=== PATIENT | female | born 1965 | race Caucasian/White ===

== ENCOUNTER → 2017-06-07 | Outpatient (CLI) | payer OTHER ==
[~2017-06-07] MED LIST: METHADONE HCL 110 M1 PO; PERCOCET 5-3251 EACH PO
== END ==
LOC: ULTRA 08:20
DX: K80.20 Calculus of gallbladder without cholecystitis without obstruction (principal); R16.0 Hepatomegaly, not elsewhere classified

== ENCOUNTER → 2020-06-12 | Outpatient (CLI) | payer OTHER | LOC: MRI 06-11 13:53 | PROVIDERS: ATTEND Family Medicine | DX: M51.26 Other intervertebral disc displacement, lumbar region (principal); M48.061 Spinal stenosis, lumbar region without neurogenic claudication; M47.816 Spondylosis without myelopathy or radiculopathy, lumbar region ==

== ENCOUNTER → 2020-06-20 | Outpatient (CLI) | payer OTHER ==
[~2020-06-20] VITALS: Ht 160 cm; Wt 65.9 kg
[~2020-06-20] MED LIST changes: +NORVASC 2.5 MG2.5 M1 PO; +ROBAXIN 750 MG750 MG PO; +TOPROL XL50 MG PO
[2020-06-20 07:33] VITALS: BP 157/99
[2020-06-20 09:32] VITALS: BP 149/91
== END | disposition home or self-care (01) ==
LOC: CATH 06:54
PROVIDERS: ATTEND Nuclear Medicine Nuclear Cardiology
DX: M54.9 Dorsalgia, unspecified (principal); M80.08XA Age-related osteoporosis with current pathological fracture, vertebra(e), initial encounter for fracture; I10 Essential (primary) hypertension; Z98.890 Other specified postprocedural states; Z79.899 Other long term (current) drug therapy; Z87.891 Personal history of nicotine dependence

== ENCOUNTER 2021-09-17 18:59 | Emergency (ER) | payer OTHER ==
[~2021-09-17] VITALS: Ht 160 cm; Wt 65.8 kg
[2021-09-17 19:00] VITALS: BP 109/60
[2021-09-17] MEDS ORDERED: ZESTORETIC 20-1 EAC3 PO (19:30)
[2021-09-17 19:33] LABS: URINE BILIRUBIN NEGATIVE (Negative); URINE BLOOD 2+ (Negative); URINE CLARITY CLEAR; URINE COLOR YELLOW; URINE GLUCOSE-RANDOM* NEGATIVE (Negative); URINE KETONES NEGATIVE (Negative); URINE PROTEIN (DIPSTICK) NEGATIVE (Negative); URINE SPECIFIC GRAVITY <= 1.005 (1.005-1.035); URINE UROBILINOGEN 0.2 E.U./dl (0.2-1.0)
[2021-09-17 19:39] LABS: URINE LEUKOCYTES-REFLEX 3+ (Negative); URINE NITRITE-REFLEX POSITIVE (Negative)
[2021-09-17 19:41] LABS: CASTS None Seen /LPF (None Seen); SQUAMOUS 4-10 Moderate /LPF (0-3)
[2021-09-17 19:44] LABS: BACTERIA-REFLEX >30 Many /HPF (None Seen); CRYSTALS None Seen /LPF (None Seen); URINE RBC 1-2 Rare /HPF (NONE SEEN)
[2021-09-17] MEDS ORDERED: MACROBID 100 M100 M1 PO (20:37)
[2021-09-17] MEDS ORDERED: NAPROSYN500 MG PO (20:37)
[2021-09-17] MEDS ORDERED: FLEXERIL PO (20:37)
== END 2021-09-17 20:48 | disposition home or self-care (01) ==
LOC: ER 18:59
PROVIDERS: Nurse Practitioner
DX: N39.0 Urinary tract infection, site not specified (principal); M54.50 Low back pain, unspecified; I10 Essential (primary) hypertension; Z79.899 Other long term (current) drug therapy; Z79.891 Long term (current) use of opiate analgesic; Z88.0 Allergy status to penicillin

== ENCOUNTER → 2021-10-06 | Outpatient (CLI) | payer OTHER ==
[~2021-10-06] VITALS: Ht 160 cm; Wt 60.2 kg
[~2021-10-06] MED LIST changes: +FLEXERIL PO; +MACROBID 100 M100 M1 PO; +NAPROSYN500 MG PO; +ZESTORETIC 20-1 EAC3 PO
[2021-10-06 11:00] VITALS: BP 106/77
--- NOTE | 2021-10-06 11:30 | NUR ---
Pain Clinic Assessment: 1. History of Osteoarthritis: Not Applicable History of Rheumatoid Arthritis: Not Applicable 2. Height: 5 ft. 3 in. 160.0 cm. Weight: 132.8 lb. oz. 60.238 kg. Patient's BMI: 23.5 3. Vital Signs: BP: 106/77 Pulse: 98 Resp: 14 Temp: 02 Sat: 100 ECG Mon: 4. Pain Intensity: 8 5. Fall Risk: Dizziness: N Needs help standing or walking: N Fallen in the last 3 months: N Fall risk comments: 6. Patient on Blood Thinner: None 7. History of Hypertension: Y 8. Opioid Therapy greater than 6 weeks: Opiate Contract Signed: 9. Risk Assessment Tool Provided: 0 low risk 10. Functional Assessment Tool: 11. Recreational Drug Use: Never Drug Type: Tobacco Use: Current Every Day Smoker Tobacco Type: Cigarettes Amount or Packs/day: 4 CIGGS How Many Years: Alcohol Use: Yes Frequency: Daily Quant: 1
--- NOTE | 2021-10-13 09:09 | HPC ---
[facility] [place] [address] PAIN MANAGEMENT CONSULTATION Name: EDUARDO BAHENA Room #: REG [facility].#: [id number] Admission: 10/06/21 Attend Phys: Sumeet Santana DO Discharge: Date of : 61 Report #: [id number] THIS REPORT FOR: cc: Ino Edward MD,Sumeet White MD, DO ~ cc: Ino Edward MD DATE OF SERVICE: 10/06/2021 REFERRING PHYSICIAN: Ino Edward MD CHIEF COMPLAINT: Low back pain, right lower extremity pain with paresthesias. HISTORY OF PRESENT ILLNESS: As you know, the patient is a 55-year-old female reporting longstanding history of chronic back pain. She has had progressively worsening symptoms now involving the right lower extremity. She has been on chronic pain medications in the form of methadone 3 times a day, 10 mg total, but has been as high as 40 mg of methadone per day. She has imaging from 2019 where she had sustained a vertebral compression fracture at L4 without inciting injury or trauma. The findings of that imaging study did show severe central canal stenosis at L3-L4 level, which has not been addressed. The patient continued to experience pain even after the kyphoplasty performed to address the L4 fracture. She has been referred to our clinic to discuss interventional treatment options to address low back pain due to central canal stenosis. The patient reports her pain is steady. She describes the pain more as an aching, throbbing, numbness and tingling. Places current pain score 7-8/10, daily average at 7-8/10, worst pain has been as 9-10/10. The patient states pain is exacerbated with virtually every activity. Pain improves only with ice packs. She does not report improvement in symptoms with the methadone therapy. She has been referred to our service to discuss interventional treatment options to address lumbar radiculopathy secondary to severe central canal stenosis at the L3-L4 level. PAST MEDICAL HISTORY: 1. Chronic back pain. 2. Hypertension. 3. Osteoporosis. 4. Tobacco habituation. PAST SURGICAL HISTORY: 1. section x 2. 2. Lumbar spine surgery. SOCIAL HISTORY: The patient is a smoker. She denies IV or illicit drug use. Admits to 1 alcohol beverage per day. She is retired. She is not working, [place] [address] PAIN MANAGEMENT CONSULTATION Name: EDUARDO BAHENA Room #: REG CLI [facility].#: [id number] Admission: 10/06/21 Attend Phys: Sumeet Santana DO Discharge: Date of : 61 Report #: [id number] receiving workmen's compensation nor is she trying to obtain disability benefits. She is not in litigation in regards to pain. She is unaccompanied at today's visit. REVIEW OF SYSTEMS: Positive for fever, night sweats, fatigue and weakness, wearing corrective eyewear, chronic low back pain, lower extremity pain with paresthesias. History of spontaneous vertebral compression fractures, tobacco habituation, hypertension. All other review of systems negative per 12-point review of systems other than those listed in history of present illness. Pain impact score 46/70, severe interference of daily activities secondary to pain. ALLERGIES: PENICILLIN. CURRENT MEDICATIONS: Methadone 10 mg t.i.d., amlodipine 2.5 mg once a day, metoprolol XL 50 mg once a day, lisinopril/hydrochlorothiazide 20/12.5 mg once a day. IMAGING: MRI of the lumbar spine obtained 06/12/2020 shows at the time an L4 acute, subacute superior endplate compression fracture with mild retropulsion. There is severe central canal stenosis at the level due to congenital narrowing, mild disk bulge and the retropulsion. There is mild L3 superior endplate volume loss, old compression fracture. There is moderate central canal stenosis at L2-L3 and multilevel facet degenerative changes throughout the lumbar spine. PQRS: The patient has known arthritic changes of the lumbar spine based on imaging. No rheumatoid arthritis. She is placing current pain score at 8/10. She is not a fall risk, has not had a fall in last 3 months. She is not on blood thinners, but is treated for hypertension. She is on chronic opioids and has a moderate opioid addiction potential based on our assessment tool. Pain impact is 46/70, severe interference of daily activities secondary to pain. PHYSICAL EXAMINATION: VITAL SIGNS: Blood pressure 106/77, pulse 98, respiratory rate 14 and unlabored. The patient 100% on room air. Height 5 feet 3 inches tall, weight 132.8 pounds, BMI calculated 23.5. GENERAL: Well-developed, well-nourished, well-hydrated 55-year-old female, appears older than stated age, placing current pain score at 7-8/10. HEENT: Normocephalic, atraumatic. Pupils equal, round and responsive. She is wearing a mask in compliance with COVID-19 regulations and hospital policies. LUNGS: Appear clear, though there is a prolonged expiratory phase. No rhonchi, no rales. CARDIOVASCULAR: Regular. No appreciable gallop, no rub. EXTREMITIES: Show no clubbing, no cyanosis and no edema. MUSCULOSKELETAL: Lower extremity strength equal and symmetrical 5/5, though deconditioning is noted bilaterally. Seated straight leg raising negative. Supine straight leg raising is negative. GAVIN test is negative. [facility] [address] [place] [address] PAIN MANAGEMENT CONSULTATION Name: EDUARDO BAHENA Room #: REG [facility].#: [id number] Admission: 10/06/21 Attend Phys: Sumeet Santana DO Discharge: Date of : 61 Report #: [id number] Gaenslen's positive for axial low back pain. Ankle clonus negative. Babinski is negative. Lumbar provocation testing met with slight increase in axial back pain, no radiation of symptoms. Deep tendon reflexes are equal and symmetrical with diminished 1+/4 bilaterally at the patella and Achilles. ASSESSMENT: 1. Symptomatic lumbar radiculopathy. 2. Severe central canal stenosis of lumbar spine. 3. Displacement of lumbar intervertebral disk with radiculopathy. 4. Facet arthropathy of lumbar spine. 5. Severe osteoporosis. 6. Chronic intractable pain. PLAN: 1. Based on today's physical exam, the history the patient provides, the distribution of symptoms the patient is experiencing pain upon and the descriptors she uses in regards to pain, likely source of the patient's pain is lumbar radiculopathy. The patient and I discussed at length today the treatment options, we have to address lumbar radicular symptoms. Following was discussed with the patient today. We discussed physical therapy, stretching exercises and core strengthening as a treatment approach. We discussed medication management as a treatment option with suggestions of treatment to include amitriptyline, nortriptyline, Cymbalta, Lyrica or gabapentin. It does not appear that the methadone is providing much in the way of improvement based on the patient's history today. We discussed lumbar epidural injections under fluoroscopic guidance for which the patient was referred to our clinic. We also discussed spinal cord stimulator therapy as a treatment course and ultimately surgical decompression of the central canal stenosis noted on imaging nearly a year ago. After reviewing the risks and benefits of all proposed treatment options, the patient chose to begin with a lumbar epidural injection under fluoroscopic guidance. 2. The patient was advised risks and benefits of a lumbar epidural injection. These risks include but are not necessarily limited to bleeding, bruising, infection, worsening of pain, no relief of pain, also risk of temporary or permanent muscle weakness, temporary or permanent nerve damage, possible paralysis, post-dural puncture headache and . The patient states understood and wished to proceed. 3. No medication changes made at today's visit. The patient is to continue her current medications as previously prescribed. 4. Plan is to see the patient back in followup visit in approximately 2 months based on her insurance for the next in the series of epidural injections. We are hopeful the patient will receive good benefit with the injection provided today. 5. The patient and I discussed at length our concerns about her compression fractures. It appears there was an old compression fracture on the imaging [address] [address] PAIN MANAGEMENT CONSULTATION Name: EDUARDO BAHENA Room #: REG [facility]#: [id number] Admission: 10/06/21 Attend Phys: Sumeet Santana DO Discharge: Date of : 61 Report #: [id number] study dated 06/12/2020 showing a mild superior endplate compression fracture at L3 and a compression fracture new or subacute fracture at L4. These were both spontaneous in presentation. This would indicate by World Health Organization standards, the patient is defined as osteoporotic. A DEXA scan would be beneficial in this patient's case. She should be on bisphosphonate medications or some type of bone density medications and a weightbearing program to help build in bone structure. We will defer to the primary team to continue the workup for her osteoporosis due to spontaneous fractures and World Health Organization's definition of osteoporosis with spontaneous fractures. 6. We have had a long discussion with the patient about smoking cessation. She is 55 years old with spontaneous fractures already occurring. Smoking is directly linked to bone density loss and exacerbation of chronic pain. She needs to discontinue this activity. She will follow up with the PCP to help assess coming off of tobacco. 7. I plan to see the patient back in followup visit to undergo the next in the series of lumbar epidural injections based on her insurance, no earlier than 2 months. 8. I wish to thank Dr. Edward for the referral of the patient to our clinic. We will see her back in followup visit to respond to any residual pain. We will keep you apprised of response to treatment as we address lumbar radicular symptoms secondary to central canal stenosis. If the patient is not doing well or does not notice significant improvement in symptoms with the injection, we would recommend an MRI of lumbar spine without contrast and a referral to Neurosurgery. Again, we wish to thank you for the opportunity to see the patient in consultation. <ELECTRONICALLY SIGNED> By: Sumeet Santana DO 10/13/21 [id number] Sumeet Santana DO /nt
--- NOTE | 2021-10-21 08:06 | P ---
[facility] [place] [address] PROCEDURE REPORT Name: EDUARDO BAHENA Room #: REG [facility]#: [id number] Admission: 10/06/21 Attend Phys: Sumeet Santana DO Discharge: Date of : 61 Report #: [id number] THIS REPORT FOR: cc: Ino Edward MD, Neal A. MD Johnson, James E. DO ~ DATE OF SERVICE: 10/06/2021 PROCEDURE NOTE PROCEDURE PERFORMED BY: Sumeet Santana DO PROCEDURE: L5-S1 right paramedian epidural steroid injection under fluoroscopic guidance. DESCRIPTION OF PROCEDURE: This is the first procedure of the first series that the patient is undergoing. After obtaining written consent, the patient was taken back to the fluoroscopy suite, placed in a prone position with pillow under the abdomen to decrease lumbar lordosis. The skin overlying the lumbosacral area was then prepped and draped in aseptic fashion. The L5-S1 vertebral interspace was then identified by AP fluoroscopy. The skin and subcutaneous tissue overlying the target site of injection was anesthetized with 3 mL 1% lidocaine. A 20-gauge 3-1/2 inch Tuohy needle was then advanced under fluoroscopic guidance towards the epidural space using a right paramedian approach. The epidural space was identified using loss of resistance to air technique. After negative aspiration for heme or cerebrospinal fluid, a total of 1 mL of Omnipaque was injected. A lumbar epidurogram was confirmed using both AP and lateral fluoroscopy. After negative aspiration for heme or cerebrospinal fluid, 5 mL of a solution containing 2 mL 40 mg per mL 80 mg total triamcinolone along with 3 mL lidocaine 1% was injected in increments. Contrast spread was noted posterior epidural space. The needle was then retracted approximately half way and needle tract flushed with 1 mL of 1% lidocaine. Needle was then removed. There were no apparent sensory or motor deficits in the lower extremity following the procedure. A sterile bandage was placed over the injection site. The heart rate, pulse, oximetry and blood pressure were continuously monitored after the procedure. There were no apparent complications. The patient tolerated the procedure well and was carefully escorted to the recovery room in [facility] [address] [place] [address] PROCEDURE REPORT Name: EDUARDO BAHENA [id number] Admission: 10/06/21 Attend Phys: Sumeet Santana DO Discharge: Date of : 61 Report #: [id number] stable condition. There were no apparent complications. After meeting discharge criteria, the patient was then discharged home. <ELECTRONICALLY SIGNED> By: Sumeet Santana DO 10/21/21805 5 5 Sumeet Santana DO /nt
== END | disposition home or self-care (01) ==
LOC: PAIN 06:58
PROVIDERS: ATTEND Anesthesiology Pain Medicine
DX: M51.16 Intervertebral disc disorders with radiculopathy, lumbar region (principal); M47.26 Other spondylosis with radiculopathy, lumbar region; M48.061 Spinal stenosis, lumbar region without neurogenic claudication; G89.29 Other chronic pain; I10 Essential (primary) hypertension; M81.0 Age-related osteoporosis without current pathological fracture; F17.210 Nicotine dependence, cigarettes, uncomplicated; Z98.890 Other specified postprocedural states; Z79.899 Other long term (current) drug therapy; Z88.0 Allergy status to penicillin

== ENCOUNTER → 2021-11-24 | Outpatient (CLI) | payer OTHER ==
[~2021-11-24] VITALS: Ht 160 cm; Wt 59.9 kg
--- NOTE | ~2021-11-24 | HPC ---
[facility] [place] [address] PAIN MANAGEMENT CONSULTATION Name: EDUARDO BAHENA Room #: REG [facility].#: [id number] Admission: 11/24/21 Attend Phys: Sumeet Santana DO Discharge: Date of : 61 Report #: [id number] THIS REPORT FOR: cc: Ino Edward MD,Sumeet White MD, DO ~ cc: Ino Edward MD DATE OF SERVICE: 11/24/2021 REFERRING PHYSICIAN: Dr. Ino Edward. CHIEF COMPLAINT: Low back pain, right lower extremity pain with paresthesias. HISTORY OF PRESENT ILLNESS: As you know, the patient is a 56-year-old female with longstanding history of chronic low back pain. She states her pain has progressively worsened with radiation down the right leg. She had been on chronic pain medications in the form of methadone 3 times a day, 10 mg at a time for a total of 30 mg of methadone. Despite this high level of opioid medication management, she was noting no improvement. She underwent imaging of the lumbar spine, which showed central canal stenosis and the patient was referred on to our clinic to discuss interventional treatment options. We saw the patient in consultation per the request of Dr. Edward on 10/06/2021. At that visit, we discussed the treatment options we had available to address lumbar radicular symptoms. She underwent the first in the series of lumbar epidural injections. She reports that epidural injection improved symptoms of pain for about a 50%, lasting for about 4 weeks, but unfortunately her symptoms reoccurred. No inciting injury or trauma. She returns today in followup visit requesting a lumbar epidural injection under fluoroscopic guidance. The patient has been on medication management for an extended period of time. She is experiencing lower extremity pain, paresthesias, numbness and tingling. Pain is elicited with cough, sneezing and straining. She has trialled some activity and lifestyle modifications. She was undergoing conservative care, but her pain became intense enough that she was referred to our clinic. She has undergone the first in the series of epidural injections, returning today requesting the next in the series. ALLERGIES: PENICILLIN. CURRENT MEDICATIONS: Methadone 10 mg t.i.d., amlodipine 2.5 mg once a day, metoprolol XL 50 mg once a day, lisinopril/hydrochlorothiazide 20/12.5 mg once a day. SOCIAL HISTORY: The patient smokes 3-4 cigarettes per day for 35 years. Denies IV or illicit drug use. Alcohol use, 1 drink per day. She is retired, not working, not receiving workmen's compensation nor is she in litigation in regards to pain. [address] [address] PAIN MANAGEMENT CONSULTATION Name: SHRUTIEDUARDO Room #: REG [facility]#: [id number] Admission: 11/24/21 Attend Phys: Sumeet Santana DO Discharge: Date of : 61 Report #: [id number] PQRS: The patient has known arthritic changes of lumbar spine, based on imaging. No rheumatoid arthritis. She is placing pain intensity 7/10. She is not a fall risk, has not had a fall in last 3 months. She is not on blood thinners, but is treated for hypertension. She is on chronic opioids, and according to our assessment tool, she is at moderate risk for opioid addiction. She places pain impact at 46 of 70, severe interference with daily activities secondary to pain. PHYSICAL EXAMINATION: VITAL SIGNS: Blood pressure 104/69, pulse 71, respiratory rate 16 and unlabored. The patient is 100% on room air. Height 5 feet 3 inches tall, weight 132 pounds, BMI calculated 23.4. GENERAL: Well-developed, well-nourished, well-hydrated 56-year-old female, smells strongly of tobacco smoke, placing current pain score 7/10. HEENT: Normocephalic, atraumatic. Pupils are round. She is wearing a mask in compliance with COVID-19 regulations. EXTREMITIES: Show no clubbing, no cyanosis. No appreciable edema. MUSCULOSKELETAL: Lower extremity strength is symmetrical 5/5. She is intact to light touch from L1 through S2 dermatomes. Seated straight leg raising negative. Supine straight leg raising negative. Fabere's test is negative. Modified Gaenslen's positive for axial low back pain. Deep tendon reflexes are diminished, but symmetrical 1+/4. Muscle bulk and tone is symmetrical in lower extremities. ASSESSMENT: 1. Symptomatic lumbar radiculopathy. 2. Severe central canal stenosis of lumbar spine. 3. Displacement of lumbar intervertebral disk with radiculopathy. 4. Facet arthropathy of lumbar spine. 5. Severe osteoporosis. 6. Chronic intractable pain. PLAN: 1. The patient returns today in followup visit to begin the process of authorization to undergo the next in the series of lumbar epidural injections. As you are aware, patient suffers from central canal stenosis of the lumbar spine, which leads to low back pain and mainly right lower extremity pain with paresthesias. The patient underwent the first in a series of lumbar epidural injections with greater than 50% improvement in overall pain on 10/06/2021. Unfortunately, this only lasted for about 1 month with recurrence of symptoms. She was referred back to our clinic to begin the process of authorization to undergo second in the series of lumbar epidural injections. The patient has been advised at present she is not a surgical candidate until which time she fails more conservative treatment. She has been on oral opioid medication for an extended period of time and this has subsequently began to fail and see the [facility] [address] [place] [address] PAIN MANAGEMENT CONSULTATION Name: EDUARDO BAHENA Room #: REG [facility]#: [id number] Admission: 11/24/21 Attend Phys: Sumeet Santana DO Discharge: Date of : 61 Report #: [id number] patient was referred to our clinic for the epidural injections. She has also been having some lifestyle changes and modifications of her activity in hopes of improving symptoms, but this has shown to be ineffective. She has undergone 1 epidural injection and hoping to undergo the next assuming authorization can be obtained. 2. The patient was advised due to third [employer] party payer restrictions authorization has to be obtained before she could undergo an epidural injection. Authorization could take anywhere from 4-14 days. We will begin that process immediately, and once we have it completed, we will have the patient return to undergo the epidural injection requested. I am hopeful this will happen quickly and we will have the patient back in followup visit as rapidly as possible. 3. No medication changes made at today's visit. The patient will continue current medical therapy as prior prescribed. 4. We plan to see the patient back in followup visit to undergo lumbar epidural injection under fluoroscopic guidance once the authorization has been obtained. By: [id number] Sumeet Santana DO /nt
[2021-11-24 13:26] VITALS: BP 104/69
--- NOTE | 2021-11-24 13:55 | NUR ---
Pain Clinic Assessment: 1. History of Osteoarthritis: Not Applicable History of Rheumatoid Arthritis: Not Applicable 2. Height: 5 ft. 3 in. 160.0 cm. Weight: 132.0 lb. oz. 59.875 kg. Patient's BMI: 23.4 3. Vital Signs: BP: 104/69 Pulse: 71 Resp: 16 Temp: 02 Sat: 100 ECG Mon: 4. Pain Intensity: 7 5. Fall Risk: Dizziness: N Needs help standing or walking: N Fallen in the last 3 months: N Fall risk comments: 6. Patient on Blood Thinner: None 7. History of Hypertension: Y 8. Opioid Therapy greater than 6 weeks: Opiate Contract Signed: 9. Risk Assessment Tool Provided: 0 low risk 10. Functional Assessment Tool: 11. Recreational Drug Use: Never Drug Type: Tobacco Use: Current Every Day Smoker Tobacco Type: Cigarettes Amount or Packs/day: 3-4 CIGS How Many Years: 35 Alcohol Use: No Frequency: Quant:
== END ==
LOC: PAIN 10:46
PROVIDERS: ATTEND Anesthesiology Pain Medicine
DX: M51.16 Intervertebral disc disorders with radiculopathy, lumbar region (principal); M48.061 Spinal stenosis, lumbar region without neurogenic claudication; M46.96 Unspecified inflammatory spondylopathy, lumbar region; Z79.899 Other long term (current) drug therapy; M81.0 Age-related osteoporosis without current pathological fracture; G89.29 Other chronic pain; Z88.0 Allergy status to penicillin

== ENCOUNTER → 2021-12-01 | Outpatient (CLI) | payer OTHER ==
[~2021-12-01] VITALS: Ht 160 cm; Wt 57.6 kg
--- NOTE | ~2021-12-01 | HPC ---
[address] [address] PAIN MANAGEMENT CONSULTATION Name: EDUARDO BAHENA Room #: REG SCARLET Berry.#: [id number] Admission: 12/01/21 Attend Phys: Sumeet Santana DO Discharge: Date of : 61 Report #: [id number] THIS REPORT FOR: cc: Ino Edward MD,Sumeet White MD, DO ~ cc: Ino Edward MD DATE OF SERVICE: 12/01/2021 REFERRING PHYSICIAN: Dr. Ino Edward. CHIEF COMPLAINT: Low back pain, right lower extremity pain with paresthesias. HISTORY OF PRESENT ILLNESS: As you know, the patient is a pleasant 56-year-old female with longstanding history of chronic low back pain with progressively worsening right lower extremity pain with paresthesias. She has been taking chronic opioid medication for this pain generator. She was referred to our clinic to trial epidural injections under fluoroscopic guidance. The patient returned to our clinic on 11/24/2021, reporting that the initial injection gave benefit of greater than 50%, lasting for about 4 weeks. She returns today to undergo the next in the series. We have received all prior authorizations required by the patient's third constitution party payer. She is placing pain score today at 6/10. There has been no injury, no new trauma, no changes in medication management that would preclude the patient from undergoing the epidural injection today. ALLERGIES: PENICILLIN. CURRENT MEDICATIONS: Methadone, amlodipine, metoprolol, lisinopril, hydrochlorothiazide. SOCIAL HISTORY: The patient continues to smoke 3-4 cigarettes per day, has done so for greater than 35 years. Denies IV or illicit drug use. Admits to 1 alcohol beverage per day. She is retired, not receiving workmen's compensation, unaccompanied. IMAGING: No new imaging available. PQRS: The patient has known arthritic changes of lumbar spine. No rheumatoid arthritis. She is placing pain intensity 6/10, not a fall risk, has not had a fall in last 3 months. She is not on blood thinners, but is treated for hypertension. She is on chronic opioids, has a low opioid addiction potential based on assessment tool, pain impact is 46/70, moderate interference of daily activities secondary to pain. PHYSICAL EXAMINATION: [facility] [address] [place] [address] PAIN MANAGEMENT CONSULTATION Name: EDUARDO BAHENA Room #: REG CL Denis#: [id number] Admission: 12/01/21 Attend Phys: Sumeet Santana DO Discharge: Date of : 61 Report #: [id number] VITAL SIGNS: Blood pressure 100/54, pulse 61, respiratory rate 16 and unlabored. The patient 99% on room air. Height 5 feet 3 inches tall, weight 127 pounds, BMI calculated 22.5. GENERAL: Well-developed, well-nourished, well-hydrated 56-year-old female. Smell strongly of tobacco smoke, placing current pain score 6/10. HEENT: Normocephalic, atraumatic. She is wearing a mask in compliance with COVID-19 regulations. EXTREMITIES: Show no clubbing, no cyanosis, no edema. MUSCULOSKELETAL: Lower extremity strength equal and symmetrical 5/5, intact to light touch from L1 through S2 dermatomes. Straight leg raising is positive on the right, negative left. Deep tendon reflexes are diminished once again 2+/4. ASSESSMENT: 1. Symptomatic lumbar radiculopathy. 2. Severe central canal stenosis of lumbar spine. 3. Displacement of lumbar intervertebral disk with radiculopathy. 4. Facet arthropathy of lumbar spine. 5. Severe osteoporosis. 6. Chronic intractable pain. PLAN: 1. The patient returns today in followup visit to undergo the next in the series of lumbar epidural injections. We have received authorization for the patient to undergo the procedure today. The patient has been advised the risks and benefits of this procedure. These risks include, but are not necessarily limited to bleeding, bruising, infection, worsening pain, no relief of pain, also risk of temporary or permanent muscle weakness, temporary or permanent nerve damage, possible paralysis, and . The patient states understood and wished to proceed. 2. No medication changes made at today's visit. The patient will continue current medical therapy as prior prescribed. 3. We did discuss with the patient smoking cessation. The patient is not interested in decreasing her smoking at this point, though I believe this would be quite beneficial to help her overall pain. 4. The patient will be returning to see her primary care physician to discuss the efficacy of the injections provided dates. She has 1 remaining epidural injection that can be utilized to address ongoing pain. If the patient does not receive good benefit with this injection, we would recommend a neurosurgical consultation. I will see her back in followup visit p.r.n. PROCEDURE NOTE. DESCRIPTION OF PROCEDURE: L4-L5 right paramedian epidural steroid injection under fluoroscopic guidance. This is the second procedure of the first series that the patient is undergoing. [address] [address] PAIN MANAGEMENT CONSULTATION Name: EDUARDO BAHENA Room #: REG SCARLET Barrios#: [id number] Admission: 12/01/21 Attend Phys: Sumeet Santana DO Discharge: Date of : 61 Report #: [id number] After obtaining written consent, the patient was taken back to the fluoroscopy suite, placed in a prone position with pillow under the abdomen to decrease lumbar lordosis. The skin overlying the lumbosacral area was then prepped and draped in aseptic fashion. The L4-L5 vertebral interspace was then identified by AP fluoroscopy. The skin and subcutaneous tissue overlying the target site of injection was anesthetized with 3 mL 1% lidocaine. A 20-gauge 3-1/2 inch Tuohy needle was then advanced under fluoroscopic guidance towards the epidural space using a right paramedian approach. The epidural space was identified using loss of resistance to air technique. After negative aspiration for heme or cerebrospinal fluid, a total of 1 mL of Omnipaque was injected. A lumbar epidurogram was confirmed using both AP and lateral fluoroscopy. After negative aspiration for heme or cerebrospinal fluid, 5 mL of a solution containing 2 mL 40 mg per mL 80 mg total triamcinolone along with 3 mL lidocaine 1% was injected in increments. Contrast spread was noted posterior epidural space. The needle was then retracted approximately half way and needle tract flushed with 1 mL of 1% lidocaine. Needle was then removed. There were no apparent sensory or motor deficits in the lower extremity following the procedure. A sterile bandage was placed over the injection site. The heart rate, pulse, oximetry and blood pressure were continuously monitored after the procedure. There were no apparent complications. The patient tolerated the procedure well and was carefully escorted to the recovery room in stable condition. There were no apparent complications. After meeting discharge criteria, the patient was then discharged home. By: [id number] Sumeet Santana DO /nt
[2021-12-01 09:06] VITALS: BP 100/54
--- NOTE | 2021-12-01 09:16 | NUR ---
Pain Clinic Assessment: 1. History of Osteoarthritis: Not Applicable History of Rheumatoid Arthritis: Not Applicable 2. Height: 5 ft. 3 in. 160.0 cm. Weight: 127.0 lb. oz. 57.607 kg. Patient's BMI: 22.5 3. Vital Signs: BP: 100/54 Pulse: 61 Resp: 16 Temp: 02 Sat: 99 ECG Mon: 4. Pain Intensity: 6 5. Fall Risk: Dizziness: N Needs help standing or walking: N Fallen in the last 3 months: N Fall risk comments: 6. Patient on Blood Thinner: None 7. History of Hypertension: Y 8. Opioid Therapy greater than 6 weeks: Opiate Contract Signed: 9. Risk Assessment Tool Provided: 0 low risk 10. Functional Assessment Tool: 11. Recreational Drug Use: Never Drug Type: Tobacco Use: Current Every Day Smoker Tobacco Type: Cigarettes Amount or Packs/day: 4 CIGGS How Many Years: Alcohol Use: No Frequency: Quant:
== END | disposition home or self-care (01) ==
LOC: PAIN 08:27
PROVIDERS: ATTEND Anesthesiology Pain Medicine
DX: M51.16 Intervertebral disc disorders with radiculopathy, lumbar region (principal); M47.26 Other spondylosis with radiculopathy, lumbar region; M48.061 Spinal stenosis, lumbar region without neurogenic claudication; G89.29 Other chronic pain; I10 Essential (primary) hypertension; F17.210 Nicotine dependence, cigarettes, uncomplicated; Z98.890 Other specified postprocedural states; Z79.891 Long term (current) use of opiate analgesic; Z79.899 Other long term (current) drug therapy; Z88.0 Allergy status to penicillin